=== PATIENT | female | born 1940 | race Caucasian/White ===

== ENCOUNTER 2020-05-17 19:48 | Emergency (ER) | payer OTHER ==
[~2020-05-17] VITALS: Ht 160 cm; Wt 62.1 kg
[~2020-05-17 19:48] MED LIST: CARDIZEM60 MG; COZAAR50 MG; GILTUSS TR TAB1 EACH PO; NABUMETONE750 MG PO; NEURONTIN300 MG; OSEL75CA PO; XANAX XR0.5 MG
== END 2020-05-17 21:11 | disposition home or self-care (01) ==
LOC: ER 19:48
DX: K11.21 Acute sialoadenitis (principal); K91.89 Other postprocedural complications and disorders of digestive system

== ENCOUNTER 2022-12-30 22:15 | Emergency (ER) | payer OTHER ==
[~2022-12-30] VITALS: Ht 157.5 cm; Wt 62.1 kg
[2022-12-30] MEDS ORDERED: ELIQUIS5 M1 PO (22:54)
[2022-12-30] MEDS ORDERED: TOPROL XL50 M1 PO (22:55)
[2022-12-30] MEDS ORDERED: ALPRAZOLAM ER0.5 MG PO (22:55)
== END 2022-12-31 02:42 | disposition home or self-care (01) ==
LOC: ER 22:15
DX: K52.89 Other specified noninfective gastroenteritis and colitis (principal); I10 Essential (primary) hypertension

== ENCOUNTER 2023-10-09 23:03 | Emergency (ER) | payer OTHER ==
[~2023-10-09] VITALS: Ht 165.1 cm; Wt 77.1 kg
[~2023-10-09 23:03] MED LIST changes: +ALPRAZOLAM ER0.5 MG PO; +ELIQUIS5 M1 PO; +TOPROL XL50 M1 PO
[2023-10-10 03:06] LABS: HEMATOCRIT 39.7 % (36.0-45.00); HEMOGLOBIN 13.4 g/dL (12.0-15.00); MEAN CELL VOLUME 87.8 fL (80.00-100.00); MEAN CORPUSCULAR HEMOGLOBIN 29.5 pg (27.00-32.0); MEAN CORPUSCULAR HGB CONC 33.7 g/dl (32.0-36.0); PLATELET COUNT 187 K/uL (150-450); RED BLOOD COUNT 4.52 M/uL (4.00-6.00); RED CELL DISTRIBUTION WIDTH 13.9 % (11.5-14.5)
[2023-10-10 03:26] LABS: INR 1.03; PARTIAL THROMBOPLASTIN TIME 28.8 SECONDS (22.0-34.0); PROTHROMBIN TIME 10.8 SECONDS (9.0-11.5)
[2023-10-10 03:30] LABS: ALBUMIN 3.9 gm/dL (3.4-5.0); BILIRUBIN TOTAL 0.8 mg/dL (0.3-1.2); CALCIUM 9.9 mg/dL (8.5-10.1); CREATININE SERUM 0.98 mg/dL (0.55-1.02); GFR 54.47; POTASSIUM 4.27 mEq/L (3.5-5.1); TOTAL PROTEIN 7.9 gm/dL (6.4-8.2)
[2023-10-10 10:58] LABS: PH,URINE 5.5 (5.0-8.0); URINE APPEARANCE Clear; URINE BILIRRUBIN Negative (NEGATIVE); URINE BLOOD Moderate; URINE COLOR Yellow; URINE GLUCOSE Negative (NEGATIVE); URINE LEUKOCYTE Trace; URINE NITRATE Negative; URINE PROTEIN Negative (NEGATIVE)
[2023-10-10 11:04] LABS: URINE BACTERIA 361.5 uL (0.0-1933); URINE EPITHELIAL CELLS 5.2 uL (0.0-38.8); URINE RBC 77.7 uL (0.0-20.8); URINE WBC 17.9 uL (0.0-23.2)
== END 2023-10-10 13:07 | disposition home or self-care (01) ==
LOC: ER 23:03
DX: K52.89 Other specified noninfective gastroenteritis and colitis (principal); R10.31 Right lower quadrant pain

== ENCOUNTER 2023-12-09 12:46 | Inpatient (IN) | payer OTHER ==
[~2023-12-09] VITALS: Ht 157.5 cm; Wt 61.7 kg
--- NOTE | 2023-12-09 13:21 | NUR ---
SE RECIBE PACIENTE AL AREA DE ICU # 2. SE CONECTA POR MIS K HAILE A MONITOR CARDIACO Y SATUROMETRO. PACIENTE ALERTA Y ORIENTADA X 3, SE ORIENTA DE TRATA- MIENTO PHI ORDEN MEDICA. REFIERE ENTENDER. MIS K HAILE CANALIZA EN BRAZO Y MANO LADO DERECHO, ANGIOS #18, PATENTES, LIBRES DE EDEMA Y/O ERITEMA. MIS Jonas MADRID RN COLECTA MUSTRAS CON MEDIDAS ASEPTICAS CORRESPONDIENTES. SE MONITOREA POR CAMBIOS SIGNIFICATIVOS. BARANDAS ELEVADAS POR CASTRO SEGURIDAD.
[2023-12-09 13:23] LABS: HEMOGLOBIN 13.3 g/dL (12.0-15.00); MEAN CELL VOLUME 86.9 fL (80.00-100.00); MEAN CORPUSCULAR HEMOGLOBIN 29.6 pg (27.00-32.0); MEAN CORPUSCULAR HGB CONC 34.1 g/dl (32.0-36.0); PLATELET COUNT 166 K/uL (150-450); RED BLOOD COUNT 4.49 M/uL (4.00-6.00); RED CELL DISTRIBUTION WIDTH 13.3 % (11.5-14.5)
[2023-12-09 13:41] LABS: INR 1.04; PROTHROMBIN TIME 10.9 SECONDS (9.0-11.5)
[2023-12-09 13:45] LABS: ALBUMIN 3.4 gm/dL (3.4-5.0); BILIRUBIN TOTAL 0.77 mg/dL (0.3-1.2); CALCIUM 8.8 mg/dL (8.5-10.1); CREATININE SERUM 0.94 mg/dL (0.55-1.02); GFR 57.15; GLOBULINA 3.6 G/DL (2.4-3.5); POTASSIUM 4.24 mEq/L (3.5-5.1)
[2023-12-09 14:19] LABS: ABG PH 7.405 (7.35-7.45); ABG PO2 117.9 mmHg (80-100); ABG pCO2 39.7 mmHg (35-45); BASE EXCESS -0.3 mmol/l; BICARBONATE 24.3 mmol/l (23-25); SaO2 98.6 %
[2023-12-09 14:20] LABS: Tco2 25.5 mmol/l; allen test SATISFACTORY; o2 32 %; puncture site RADIAL RIGHT
[2023-12-09 18:32] LABS: PH,URINE 7.5 (5.0-8.0); URINE APPEARANCE Clear; URINE BILIRRUBIN Negative (NEGATIVE); URINE BLOOD Small; URINE COLOR Yellow; URINE GLUCOSE Negative (NEGATIVE); URINE LEUKOCYTE Negative; URINE NITRATE Negative; URINE PROTEIN Negative (NEGATIVE); URINE UROBILINOGEN 0.2 E.U./dl
[2023-12-09 18:36] LABS: URINE EPITHELIAL CELLS 2.1 uL (0.0-38.8); URINE RBC 27.4 uL (0.0-20.8); URINE WBC 2.7 uL (0.0-23.2)
[2023-12-09] MEDS ORDERED: FUROsemide 20 MG/2 ML VIAL IV SCH (19:14)
[2023-12-09] MEDS ORDERED: GABAPENTIN 300 MG CAPSULE PO SCH (19:14)
[2023-12-09] MEDS ORDERED: ACETAMINOPHEN 500 MG GEL..CAP PO PRN (19:15)
[2023-12-09] MEDS ORDERED: ONDANSETRON HCL 4 MG in 0.9 % SODIUM CHLORIDE 50 ML IV PRN (19:15)
[2023-12-10] MEDS ORDERED: NITROGLYCERIN IN 5 % DEXTROSE 50 MG/250 ML BOTTLE IV SCH (08:45)
[2023-12-10] MEDS ORDERED: NITROGLYCERIN IN 5 % DEXTROSE 250 ML IV SCH (09:00)
[2023-12-10] MEDS ORDERED: FAMOTIDINE/PF 20 MG in 0.9 % SODIUM CHLORIDE 8 ML IV PUSH SCH (09:00)
[2023-12-10] MEDS ORDERED: APIXABAN 5 MG TABLET PO SCH (09:00)
[2023-12-10] MEDS ORDERED: LOSARTAN POTASSIUM 25 MG TABLET PO SCH (09:00)
[2023-12-10] MEDS ORDERED: METOPROLOL SUCCINATE 25 MG TAB.SR.24H PO SCH (09:00)
[2023-12-10] MEDS ORDERED: ALPRAzolam 0.5 MG TABLET PO SCH (21:00)
== END 2023-12-11 14:20 | disposition home or self-care (01) | DRG 293 ==
LOC: ER 12:46 → MEDI 19:32 → SEC-K 19:32 → MEDI 20:50
PROVIDERS: General Practice; ADMIT Internal Medicine; ATTEND Internal Medicine
PROC: 4A12X4Z Monitoring of Cardiac Electrical Activity, External Approach (ICD-10-PCS; principal; 2023-12-09)
PROC: B345ZZZ Ultrasonography of Bilateral Common Carotid Arteries (ICD-10-PCS; 2023-12-09)
PROC: B24BZZZ Ultrasonography of Heart with Aorta (ICD-10-PCS; 2023-12-09)
DX: I11.0 Hypertensive heart disease with heart failure (principal); I50.9 Heart failure, unspecified; I20.0 Unstable angina; I48.91 Unspecified atrial fibrillation; Z20.822 Contact with and (suspected) exposure to COVID-19; G62.9 Polyneuropathy, unspecified

== ENCOUNTER 2024-11-03 08:18 | Emergency (ER) | payer OTHER ==
[~2024-11-03] VITALS: Ht 160 cm; Wt 61.2 kg
[2024-11-03] MEDS ORDERED: DEXAMETHASONE SODIUM PHOSPHATE 4 MG/ML VIAL IM STA (09:04)
[2024-11-03] MEDS ORDERED: CIPROFLOXACIN IN 5 % DEXTROSE 400 MG/200 ML PIGGYBAG IV STA (09:04)
[2024-11-03] MEDS ORDERED: DEXAMETHASONE SODIUM PHOSPHATE 4 MG/ML VIAL ONE (09:19)
[2024-11-03] MEDS ORDERED: CIPROFLOXACIN IN 5 % DEXTROSE 400 MG/200 ML PIGGYBAG IV ONE (09:19)
[2024-11-03 09:37] LABS: HEMATOCRIT 42.6 % (36.0-45.00); HEMOGLOBIN 14.9 g/dL (12.0-15.00); MEAN CELL VOLUME 86.3 fL (80.00-100.00); MEAN CORPUSCULAR HEMOGLOBIN 30.2 pg (27.00-32.0); MEAN CORPUSCULAR HGB CONC 34.9 g/dl (32.0-36.0); PLATELET COUNT 244 K/uL (150-450); RED BLOOD COUNT 4.93 M/uL (4.00-6.00); RED CELL DISTRIBUTION WIDTH 13.9 % (11.5-14.5)
[2024-11-03 10:45] LABS: CALCIUM 9.3 mg/dL (8.5-10.1); CREATININE SERUM 0.82 mg/dL (0.55-1.02); GFR 66.74; POTASSIUM 4.03 mEq/L (3.5-5.1)
[2024-11-03 11:20] LABS: URINE APPEARANCE Clear; URINE BILIRRUBIN Negative (NEGATIVE); URINE BLOOD Moderate; URINE COLOR Yellow; URINE GLUCOSE Negative (NEGATIVE); URINE KETONE Negative (NEGATIVE); URINE LEUKOCYTE Negative; URINE NITRATE Negative; URINE PROTEIN 30 (NEGATIVE)
[2024-11-03 11:23] LABS: URINE BACTERIA 9.7 uL (0.0-1933); URINE EPITHELIAL CELLS 6.4 uL (0.0-38.8); URINE RBC 111.3 uL (0.0-20.8); URINE WBC 5.8 uL (0.0-23.2)
[2024-11-03 12:01] LABS: URINE CAST 0.44 uL (0.0-1.40)
== END 2024-11-03 12:30 | disposition home or self-care (01) ==
LOC: ER 08:20
PROVIDERS: General Practice
DX: R21 Rash and other nonspecific skin eruption (principal); N39.0 Urinary tract infection, site not specified; L25.9 Unspecified contact dermatitis, unspecified cause; I10 Essential (primary) hypertension; Z88.6 Allergy status to analgesic agent